=== PATIENT | female | born 1960 | race Caucasian/White ===

== ENCOUNTER 2018-06-07 04:34 | Emergency (ER) | payer BC ==
--- NOTE | 2018-06-07 08:23 | RAD ---
CHEST PA AND LATERAL: HISTORY: Cough. COMPARISON: There are no previous exams for comparison. FINDINGS: The heart size is borderline. There is mild elevation of the right hemidiaphragm. No focal areas of consolidation, pneumothoraces, or pleural effusions are seen. There are mild degenerative changes o f the spine. Surgical clips are seen in the axillae, on either side. A calcified nodular density in the left upper lobe is likely old granulomatous disease. IMPRESSION: No radiographic evidence of acute cardiopulmonary process. POS: [facility]
== END 2018-06-07 05:42 | disposition home or self-care (01) ==
LOC: SCSER 04:34
DX: J20.9 Acute bronchitis, unspecified (principal); J34.89 Other specified disorders of nose and nasal sinuses; R68.84 Jaw pain; F41.9 Anxiety disorder, unspecified; Z79.82 Long term (current) use of aspirin; Z79.899 Other long term (current) drug therapy
CPT/HCPCS: 71046; 93005